=== PATIENT | male | born 1995 | race African-American/Black ===

== ENCOUNTER 2020-02-21 08:47 | Emergency (ER) | payer SELFPAY ==
[~2020-02-21] VITALS: Ht 182.9 cm; Wt 63.3 kg
[2020-02-21 09:10] VITALS: BP 136/82
[2020-02-21 09:47] LABS: BILIRUBIN,URINE NEGATIVE (NEG); CLARITY,URINE CLEAR; COLOR,URINE YELLOW; NITRITE,URINE NEGATIVE (NEG); PROTEIN,URINE NEGATIVE (NEG-TRACE); UROBILINOGEN,URINE 0.2 mg/dL (0.2 mg/dL)
[2020-02-21 09:52] LABS: BARBITURATES NEG (NEG); BENZODIAZEPINES NEG (NEG); CANNABINOIDS POS (NEG); COCAINE POS (NEG); METHADONE NEG (NEG); OPIATES NEG (NEG); PHENCYCLIDINE NEG (NEG)
[2020-02-21 09:53] LABS: BACTERIA,URINE 0 /HPF (0-FEW); RBC,URINE 0 /HPF (0-2); WBC,URINE 0 /HPF (0-4)
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
[2020-02-21 09:59] LABS: AMPHETAMINE/METHAMPHETAMINE NEG (NEG)
== END 2020-02-21 10:29 | disposition home or self-care (01) ==
LOC: ER 08:47
DX: F19.10 Other psychoactive substance abuse, uncomplicated (principal); F17.200 Nicotine dependence, unspecified, uncomplicated; F10.20 Alcohol dependence, uncomplicated; Y90.0 Blood alcohol level of less than 20 mg/100 ml
CPT/HCPCS: 80307; 81001; 99283